=== PATIENT | male | born 1980 | race Caucasian/White ===

== ENCOUNTER → 2017-05-09 | Outpatient (CLI) | payer BC ==
--- NOTE | 2017-05-09 08:31 | RAD ---
INDICATION:BOIL COMPARISON: None. FINDINGS: Focused ultrasound images were obtained of the subcutaneous soft tissues at the umbilical region. Within the subcutaneous soft tissues there is a 31 x 28 x 11 mm hypoechoic region identified extending towards the skin. IMPRESSION: Hypoechoic region is seen within the subcutaneous soft tissues. Could be from causes such as a fluid collection with debris including phlegmon/early abscess formation although other causes such as a soft tissue hematoma also in differential. There couple echogenic foci within which could be secondary to calcifications or air. Follow-up could be obtained to ensure this resolves.
== END | disposition home or self-care (01) ==
LOC: US 06:39
PROVIDERS: ATTEND Nurse Practitioner Family
DX: L02.92 Furuncle, unspecified (principal)
CPT/HCPCS: 76705